=== PATIENT | male | born 1945 | race Caucasian/White ===

== ENCOUNTER 2023-02-26 19:32 | Inpatient (IN) | payer OTHER, MEDICAID ==
[~2023-02-26] VITALS: Ht 175.3 cm; Wt 81.6 kg
[2023-02-26 19:45] VITALS: BP 88/48
--- NOTE | 2023-02-26 19:47 | NUR ---
[facility] TO BED #7
--- NOTE | 2023-02-26 20:24 | NUR ---
XRAY AT BEDSIDE
[2023-02-26] MEDS ORDERED: NACL 0.9% 1,000 ML IV ONE (20:40)
[2023-02-26 21:29] LABS: BASOPHILS % (AUTO) 0.6 % (0.0-2.0); EOSINOPHILS % (AUTO) 0.6 % (0.0-4.0); HEMATOCRIT 22.1 % (36-52); LYMPHOCYTES # (AUTO) 2.3 K/uL (2.0-11.5); LYMPHOCYTES % (AUTO) 52.1 % (20.5-51.1); MEAN CORPUSCULAR HEMOGLOBIN 25 pg (27-31); MEAN CORPUSCULAR HGB CONC 32 g/dL (33-37); MEAN CORPUSCULAR VOLUME 77.2 fL (80-94); MONOCYTES % (AUTO) 22.5 % (1.7-9.3); NEUTROPHILS # (AUTO) 1.1 K/uL (1.8-7.7); NEUTROPHILS % (AUTO) 24.2 % (42.2-75.2); PLATELET COUNT (AUTO) 83 K/uL (140-450); RED BLOOD CELL COUNT(AUTO) 2.86 MIL/uL (4.20-6.10); RED CELL DISTRIBUTION WIDTH 20.5 % (11.6-13.7); WHITE BLOOD COUNT (AUTO) 4.4 K/uL (4.8-10.8)
--- NOTE | 2023-02-26 22:02 | NUR ---
78YR OLD MALE BIB EMS C/O ETOH. PT IS A&OX3. PT STATES HE HAS BEEN DRINKING SINCE 829 THIS AM. FAMILY CALLED 911 PT WAS ACTING ALTERED. PT IS ON BEDSIDE HEAT AND FROST INSULATOR RESP ARE EVEN AND UNLABORED. HOB IS ELEVATED. DENIES CP OR SOB. DENIES V/N. PT IS POOR HISTORIAN NKDA UNKNOWN
[2023-02-26 22:09] LABS: ALBUMIN 2.7 g/dL (3.4-5.0); ANION GAP 12.5 (8-16); ASPARTATE AMINOTRANSFERASE 61 U/L (15-37); CARBON DIOXIDE 20.1 mmol/L (21-32); CHLORIDE 97 mmol/L (98-107); CREATININE 1.1 mg/dL (0.6-1.3); GLUCOSE 109 mg/dL (74-106); POTASSIUM 3.6 mmol/L (3.5-5.1); SODIUM SERUM 126 mmol/L (136-145); TOTAL BILIRUBIN 0.4 mg/dL (0.0-1.0); UREA NITROGEN, BLOOD 11 mg/dL (7-18)
[2023-02-26] MEDS ORDERED: ASPIRIN 325 MG TAB PO ONE (22:50)
--- NOTE | 2023-02-26 23:02 | NUR ---
DAUGHTER AT BEDSIDE. PT IS BEING ADMITED TO HOSPITAL. PT AND FAMILY AWARE.
[2023-02-27] MEDS ORDERED: ASPIRIN 325 MG TAB ONE (00:20)
[2023-02-27] MEDS ORDERED: PHARMACY TO DOSE MC PRN (00:30)
--- NOTE | 2023-02-27 02:03 | NUR ---
PENDING BED ASSIG. PT IS RESTING IN BED WITH HOB ELEVATED. RESP EVEN AND UNLABORED.
--- NOTE | 2023-02-27 03:18 | NUR ---
PT SLEEPING WITH HOB ELEVATED. ON BEDSIDE WAREHOUSER. DENIES CP OR SOB. PT IS COVID POSITIVE. RESP EVEN AND UNLABORED. PENDING BED ASSIG ON TELE. DAUGHTER AT BED SIDE
[2023-02-27] MEDS ORDERED: IBUP200C15 PO (03:22)
--- NOTE | 2023-02-27 03:22 | NUR ---
MED RECONCILE COMPLETED
[2023-02-27 07:56] LABS: BASOPHILS % (AUTO) 0.4 % (0.0-2.0); EOSINOPHILS % (AUTO) 0.6 % (0.0-4.0); HEMATOCRIT 23.5 % (36-52); HEMOGLOBIN 7.5 g/dL (12.0-18.0); LYMPHOCYTES # (AUTO) 2.7 K/uL (2.0-11.5); LYMPHOCYTES % (AUTO) 61.8 % (20.5-51.1); MEAN CORPUSCULAR HEMOGLOBIN 24 pg (27-31); MEAN CORPUSCULAR HGB CONC 32 g/dL (33-37); MEAN CORPUSCULAR VOLUME 76.3 fL (80-94); NEUTROPHILS # (AUTO) 0.6 K/uL (1.8-7.7); NEUTROPHILS % (AUTO) 14.2 % (42.2-75.2); PLATELET COUNT (AUTO) 82 K/uL (140-450); RED BLOOD CELL COUNT(AUTO) 3.09 MIL/uL (4.20-6.10); RED CELL DISTRIBUTION WIDTH 20.5 % (11.6-13.7); WHITE BLOOD COUNT (AUTO) 4.3 K/uL (4.8-10.8)
[2023-02-27 08:20] LABS: ANION GAP 14.7 (8-16); CARBON DIOXIDE 19.4 mmol/L (21-32); CHLORIDE 105 mmol/L (98-107); CREATININE 0.9 mg/dL (0.6-1.3); GLUCOSE 90 mg/dL (74-106); POTASSIUM 4.1 mmol/L (3.5-5.1); SODIUM SERUM 135 mmol/L (136-145); UREA NITROGEN, BLOOD 8 mg/dL (7-18)
--- NOTE | 2023-02-27 10:06 | NUR ---
RESTING IN BED. REFUSES TO USE URINAL, PREFERS TO WALK TO BATHROOM. URINATES OFTEN "BECAUSE I DRANK LAST NIGHT"
[2023-02-27] MEDS ORDERED: HEPARIN PER PHARMACY MC PRN (10:20)
[2023-02-27] MEDS ORDERED: MAG SULF 2000 MG/WATER PREMIX 50 ML IV PRN (10:45)
[2023-02-27] MEDS ORDERED: LORazepam 2 MG/ML VIAL IVP PRN (10:45)
[2023-02-27] MEDS ORDERED: POTASSIUM CHLORIDE 10 MEQ TABER PO PRN (10:45)
[2023-02-27 10:51] LABS: PROTHROMBIN TIME 11.6 secs (10.8-13.4)
--- NOTE | 2023-02-27 12:07 | NUR ---
DR EVANS AT BEDSIDE, AWARE PLT LEVEL IS 82, PHARMACY CANNOT START HEPARIN DRIP. DR MONTES MADE AWARE, MESSAGE LEFT. PT RESTING IN BED AT THIS TIME, DENIES ANY COMPLAINTS. INSISTS ON WALKING TO THE BATHROOM INSTEAD OF USING URINAL. G DAUGHTER VISITING AT BEDSIDE
[2023-02-27] MEDS: FOLIC ACID IV SCH (13:00)
[2023-02-27] MEDS: MULTIVITAMIN IV SCH (13:00)
[2023-02-27] MEDS: THIAMINE IV SCH (13:00)
[2023-02-27] MEDS: NACL 0.9% IV SCH (13:00)
[2023-02-27] MEDS: LORazepam 1 MG TAB PO SCH ×2 (13:00→21:30)
--- NOTE | 2023-02-27 17:32 | NUR ---
MOVED TO ER BED 1
--- NOTE | 2023-02-27 19:26 | NUR ---
Patient resting in bed A/Ox4, chest rise and fall symmetrical, no c/o pain or s/s of distress, seizure pads on bedrails.
--- NOTE | 2023-02-27 21:35 | NUR ---
Patient resting in bed A/Ox4, chest rise and fall symmetrical, no c/o pain or s/s of distress, seizure pads on bedrails.
--- NOTE | 2023-02-27 22:03 | NUR ---
Patient will be admitted to care of Maria D TORO. Admited to telemetry. Will go to room 117. Belongings list completed. Report to Maria D TORO. Maria D TORO verbalized understanding of report, no further questions. Patient transferred with COVID precautions in place.
[2023-02-27 22:16] VITALS: BP 153/81
--- NOTE | 2023-02-27 22:16 | NUR ---
RECEIVED PT FROM ER. PATIENT IS AWAKE, ALERT AND ORIENTED X 4. AMBULATED TO THE BED WITH STEADY GAIT. DENIES PAIN. DENEIS SHORTNESS OF BREATH. SKIN WARM AND DRY TO TOUCH. IVF INFUSING WELL ORDERED. ORIENTED TO MST SET UP, CALL LIGHT GIVEN TO PT, INSTRUCTION ON USE PROVIDED, ENCOURAGED TO CALL IF ASSISTANCE IS NEEDED, PT VERBALLY AGREED.
[2023-02-28] VITALS: BP 144/74
--- NOTE | 2023-02-28 | NUR ---
VITAL SIGNS TAKEN AND DOCUMENTED. DENIES PAIN. CALL LIGHT WITHIN REACH.
--- NOTE | 2023-02-28 02:30 | NUR ---
PT IS ASLEEP. BREATHING EVEN AND UNLABORED. CALL LIGHT IN REACH.
[2023-02-28 04:00] VITALS: BP 157/83
[2023-02-28] MEDS: LORazepam 1 MG TAB PO SCH ×3 (04:15→20:05)
--- NOTE | 2023-02-28 06:36 | NUR ---
PATIENT IS ASLEEP. ALL NEEDS ATTENDED TO. NO DISTRESS. SAFETY PRECAUTIONS MAINTAINED DURING THE SHIFT, CALL LIGHT REMAINS WITHIN REACH.
[2023-02-28 07:23] LABS: BASOPHILS % (AUTO) 0.3 % (0.0-2.0); EOSINOPHILS % (AUTO) 0.8 % (0.0-4.0); HEMATOCRIT 23.1 % (36-52); HEMOGLOBIN 7.3 g/dL (12.0-18.0); LYMPHOCYTES # (AUTO) 1.3 K/uL (2.0-11.5); LYMPHOCYTES % (AUTO) 51.5 % (20.5-51.1); MEAN CORPUSCULAR HEMOGLOBIN 24 pg (27-31); MEAN CORPUSCULAR HGB CONC 32 g/dL (33-37); MEAN CORPUSCULAR VOLUME 77.3 fL (80-94); MONOCYTES # (AUTO) 0.8 K/uL (0.8-1.0); MONOCYTES % (AUTO) 32.7 % (1.7-9.3); NEUTROPHILS # (AUTO) 0.4 K/uL (1.8-7.7); NEUTROPHILS % (AUTO) 14.7 % (42.2-75.2); PLATELET COUNT (AUTO) 66 K/uL (140-450); RED CELL DISTRIBUTION WIDTH 20.5 % (11.6-13.7); WHITE BLOOD COUNT (AUTO) 2.5 K/uL (4.8-10.8)
[2023-02-28 07:43] LABS: ANION GAP 11.1 (8-16); CARBON DIOXIDE 23.9 mmol/L (21-32); CHLORIDE 107 mmol/L (98-107); GLUCOSE 92 mg/dL (74-106); SODIUM SERUM 138 mmol/L (136-145); UREA NITROGEN, BLOOD 11 mg/dL (7-18)
[2023-02-28 07:48] LABS: MAGNESIUM 1.9 mg/dL (1.8-2.4); PHOSPHORUS 2.1 mg/dL (2.5-4.9)
[2023-02-28] MEDS ORDERED: ONDANSETRON 4 MG/2 ML VIAL IVP PRN (10:30)
[2023-02-28] MEDS ORDERED: ACETAMINOPHEN 325 MG TAB PO PRN (10:30)
[2023-02-28] MEDS ORDERED: HYDROcodone/APAP 7.5/325 MG 1 TAB PO PRN (10:30)
[2023-02-28 11:32] LABS: CHOL/HDL RATIO 2.3 (1-4.5); FREE T4 (FREE THYROXINE) 1.05 ng/dL (0.76-1.46); MAGNESIUM 1.9 mg/dL (1.8-2.4); PHOSPHORUS 2.1 mg/dL (2.5-4.9); THYROID STIMULATING HORMONE 6.02 uIU/mL (0.34-3.74)
--- NOTE | 2023-02-28 11:45 | NUR ---
DC PLANNING ASSESSMENT COMPLETE PLEASE REFER TO ASSESSMENT FOR ADDITIONAL DETAILS PTS [facility] DC PLAN IS FOR PT TO RETURN HOME WITH FAMILY PROVIDING TRANSPORATION, WHEN MEDICALLY STABLE. Addendum: 03/01/23 at 1545 by Samra Mendiola SS Amended: Links added.
[2023-02-28 11:53] LABS: PROTHROMBIN TIME 12.5 secs (10.8-13.4)
[2023-02-28] MEDS: MULTIVITAMIN IV SCH (12:34)
[2023-02-28] MEDS: FOLIC ACID IV SCH (12:34)
[2023-02-28] MEDS: THIAMINE IV SCH (12:34)
[2023-02-28] MEDS: NACL 0.9% IV SCH (12:34)
[2023-02-28] MEDS ORDERED: LACTULOSE 20 GM/30 ML UDC PO ONE (14:05)
[2023-02-28] MEDS: LACTULOSE 20 GM/30 ML UDC PO SCH (14:06)
--- NOTE | 2023-02-28 17:03 | NUR ---
P.T. NOTES P.T. EVAL COMPLETED; REFER TO EVAL FOR DETAILS.
[2023-02-28 18:59] LABS: APPEARANCE,URINE CLEAR (CLEAR); BILIRUBIN,URINE NEGATIVE (NEGATIVE); BLOOD, URINE NEGATIVE (NEGATIVE); COLOR,URINE YELLOW (YELLOW); LEUKOCYTE ESTERASE ,URINE NEGATIVE (NEGATIVE); NITRITE, URINE NEGATIVE (NEGATIVE); PH,URINE 7.5 (5.0-9.0); UGLUCOSE NEGATIVE (NEGATIVE)
[2023-02-28 19:11] LABS: BARBITURATE, URINE NEGATIVE ng/ml (NEG <=200); BENZODIAZEPINE, URINE POSITIVE ng/mL (NEG <=200); CANNABINOID, URINE POSITIVE ng/mL (NEG <=50); COCAINE, URINE NEGATIVE ng/mL (NEG <=300); OPIATE, URINE NEGATIVE ng/mL (NEG <=2000); PHENCYCLIDINE SCREEN,URINE NEGATIVE ng/mL (NEG <=25)
--- NOTE | 2023-02-28 19:30 | NUR ---
RECEIVED PT IN BED ASLEEP, EASILY AWAKEN BY VERBAL STIMULI. DENIES PAIN. DENIES SHORTNESS OF BREATH. SKIN WARM AND DRY TO TOUCH. SAFETY PRECAUTIONS IN PLACE, CALL LIGHT IN REACH.
[2023-02-28 20:00] VITALS: BP 112/55
[2023-02-28] MEDS: DOCUSATE SODIUM 100 MG GELCAP PO SCH (20:05)
--- NOTE | 2023-02-28 20:51 | NUR ---
INFORMED DR. LOVELACE OF ULTRASOUND OF THE LIVER RESULT. Addendum: 02/28/23 at 2138 by Maria D Ortega RN PER MONITOR FOR NOW. DESK DIRECTOR AWARE.
[2023-03-01] VITALS: BP 135/77
--- NOTE | 2023-03-01 | NUR ---
VITAL SIGNS TAKEN AND DOCUMENTED. DENIES PAIN. CALL LIGHT IN REACH.
[2023-03-01 04:00] VITALS: BP 122/62
[2023-03-01] MEDS: LORazepam 1 MG TAB PO SCH ×2 (04:10→13:19)
--- NOTE | 2023-03-01 04:10 | NUR ---
DUE MEDICATION GIVEN ORDERED, PT TOLERATED WELL. DENIES PAIN.
--- NOTE | 2023-03-01 06:30 | NUR ---
PATIENT IS ASLEEP. ALL NEEDS ATTENDED TO. NO DISTRESS NOTED. SAFETY PRECAUTIONS MAINTAINED DURING THE SHIFT, CALL LIGHT REMAINS WITHIN REACH.
[2023-03-01 06:59] LABS: BASOPHILS % (AUTO) 0.5 % (0.0-2.0); EOSINOPHILS % (AUTO) 0.6 % (0.0-4.0); HEMATOCRIT 23.2 % (36-52); HEMOGLOBIN 7.5 g/dL (12.0-18.0); LYMPHOCYTES # (AUTO) 1.7 K/uL (2.0-11.5); LYMPHOCYTES % (AUTO) 60.4 % (20.5-51.1); MEAN CORPUSCULAR HEMOGLOBIN 25 pg (27-31); MEAN CORPUSCULAR HGB CONC 32 g/dL (33-37); MEAN CORPUSCULAR VOLUME 76.4 fL (80-94); MONOCYTES # (AUTO) 0.7 K/uL (0.8-1.0); MONOCYTES % (AUTO) 25.8 % (1.7-9.3); NEUTROPHILS # (AUTO) 0.4 K/uL (1.8-7.7); NEUTROPHILS % (AUTO) 12.7 % (42.2-75.2); PLATELET COUNT (AUTO) 62 K/uL (140-450); RED BLOOD CELL COUNT(AUTO) 3.03 MIL/uL (4.20-6.10); RED CELL DISTRIBUTION WIDTH 20.7 % (11.6-13.7); WHITE BLOOD COUNT (AUTO) 2.9 K/uL (4.8-10.8)
[2023-03-01 07:11] LABS: ANION GAP 12.5 (8-16); CARBON DIOXIDE 23.3 mmol/L (21-32); CHLORIDE 105 mmol/L (98-107); CREATININE 0.9 mg/dL (0.6-1.3); GLUCOSE 91 mg/dL (74-106); POTASSIUM 3.8 mmol/L (3.5-5.1); SODIUM SERUM 137 mmol/L (136-145); UREA NITROGEN, BLOOD 12 mg/dL (7-18)
[2023-03-01 07:30] LABS: MAGNESIUM 1.7 mg/dL (1.8-2.4); PHOSPHORUS 3.1 mg/dL (2.5-4.9)
[2023-03-01 08:00] VITALS: BP 118/63
[2023-03-01] MEDS ORDERED: PANTOPRAZOLE 40 MG INJ VIAL IVP SCH (09:00)
[2023-03-01] MEDS: LACTULOSE 20 GM/30 ML UDC PO SCH (10:43)
[2023-03-01] MEDS: DOCUSATE SODIUM 100 MG GELCAP PO SCH (10:43)
[2023-03-01 12:00] VITALS: BP 143/69
[2023-03-01] MEDS: NACL 0.9% IV SCH (13:17)
[2023-03-01] MEDS: THIAMINE IV SCH (13:17)
[2023-03-01] MEDS: MULTIVITAMIN IV SCH (13:17)
[2023-03-01] MEDS: FOLIC ACID IV SCH (13:17)
--- NOTE | 2023-03-01 16:13 | NUR ---
DC PLANNING: JUAN DANIEL SPOKE WITH PT'S DAUGHTER AYANNA AT BED SIDE REGARDING THE ISSUES AND CONCERNS. PATIENT IS ALERT AND ORIENTED X 4 ABLE TO MAKE NEEDS KNOWN. PER DAUGHTER SHE BROUGHT THE ADVANCE DIRECTIVE PAPERWORK THAT HAS NO NOTARIZATION REQUIRED . JUAN DANIEL AND SW EXPLAINED AND PROVIDE THE ADVANCE DIRECTIVES AND NEEDS TO PROVIDE TO BE NOTARIZEDR . DAUGHTER REFUSED TO ACCEPT THE HOSPITAL ADVANCE DIRECTIVES. DAUGHTER STATED WILL SIGN AMA AND TAKE PATIENT TO HOME. NOTIFIED DR LOVELACE. JUAN DANIEL TO FOLLOW
--- NOTE | 2023-03-01 17:39 | NUR ---
AROUND 1650, PATIENT'S DAUGHTERS REQUESTING STAFF PROVIDING AMA DOCUMENT; THEREFORE, PATIENT CAN SIGN THE PAPER AND THEY CAN TAKE PATIENT HOME. NURSE EXPLAIN THE RISK AND BENEFIT TO LEAVE WITH AMA AND PATIENT AWARE; WHEN NURSE EXPLAIN THAT PATIENT IS COVID POSITIVE AT THIS TIME; THEREFORE, NURSE WILL DISCHARGE PATIENT FROM BACK DOOR. ONE OF THE NURSE CHALLENGING NURSE, "YOU DON'T KNOW HOW LONG HE IS ON COVID. DID YOU CHECK IF HE HAVE COVID TODAY?" NURSE EXPLAIN THAT PUBLIC HEALTH DO NOT ENCOURAGE REPEAT COVID LEE IN SHORT INTERVAL BECAUSE "Individuals who have recovered from COVID-19 generally should not undergo testing for screening/surveillance purposes, if they are asymptomatic. " NURSE THEN OBTAIN SIGNATURE FOR AMA DOCUMENT, REMOVE, TEL . MONITOR, IV ACCESS, WRIST BAND AND WHEEL PATIENT OUT PER DAUGHTERS REQUEST.
== END 2023-03-01 16:55 | disposition left against medical advice (07) | DRG 640 ==
LOC: MED 19:32 → MTU 02-27 00:35
DX: E86.0 Dehydration (principal); I21.A1 Myocardial infarction type 2; U07.1 COVID-19; D61.818 Other pancytopenia; E46 Unspecified protein-calorie malnutrition; E72.20 Disorder of urea cycle metabolism, unspecified; E87.1 Hypo-osmolality and hyponatremia; F12.10 Cannabis abuse, uncomplicated; F10.129 Alcohol abuse with intoxication, unspecified; I95.1 Orthostatic hypotension; H93.13 Tinnitus, bilateral; E83.51 Hypocalcemia; D50.9 Iron deficiency anemia, unspecified; E83.39 Other disorders of phosphorus metabolism; K70.30 Alcoholic cirrhosis of liver without ascites; Z68.26 Body mass index [BMI] 26.0-26.9, adult; Y90.6 Blood alcohol level of 120-199 mg/100 ml; K72.90 Hepatic failure, unspecified without coma
CPT/HCPCS: 36415; 71045; 71270; 76705; 80048; 80053; 80305; 81003; 82140; 82150; 83036; 83605; 83690; 83735; 83880; 84100; 84439; 84443; 84484; 85025; 85379; 85610; 85730; 87040; 87081; 87086; 93005; 97163-GP; 99285; A9153; C9113; G0482; J3411; J3475; J3490; J7030; Q0092; Q9967